=== PATIENT | female | born 1990 ===

== ENCOUNTER 2023-04-15 07:56 | Day surgery (SDC) | payer OTHER ==
[2023-04-15] MEDS ORDERED: NAPR500T14 PO (17:33)
[2023-04-15] MEDS ORDERED: MORGIDOX100 MG PO (17:33)
== END 2023-04-15 23:25 | disposition home or self-care (01) ==
LOC: CIR.AMB 07:56
PROVIDERS: ATTEND Obstetrics & Gynecology
DX: N84.0 Polyp of corpus uteri (principal); D25.0 Submucous leiomyoma of uterus; N92.0 Excessive and frequent menstruation with regular cycle; Z20.822 Contact with and (suspected) exposure to COVID-19; I10 Essential (primary) hypertension